=== PATIENT | female | born 1930 | race Caucasian/White ===

== ENCOUNTER 2016-11-03 03:36 | Inpatient (IN) ==
[2016-10-20 12:37] LABS: MANUAL DIFF NEEDED? NO
[2016-10-20 13:10] LABS: INR 1.03; PROTIME 10.8 Seconds (9.2-11.7)
[2016-10-20 13:32] LABS: CALCIUM 9.8 mg/dL (8.8-10.2); POTASSIUM 4.4 mmol/L (3.5-5.1)
[2016-10-20 13:34] LABS: BASO% 0.2 % (0.0-0.8); EOS# 0.26 X1000 (0.0-0.7); EOS% 4.8 % (0.0-10.0); HEMATOCRIT 40.5 % (37.0-47.0); HEMOGLOBIN 13.7 g/dL (12.0-16.0); LYMPH# 1.38 X1000 (1.2-3.4); LYMPH% 25.3 % (20.5-51.1); MCH 32.5 PG (27-31); MCHC 33.8 g/dL (33-37); MCV 96.2 FL (81-99); MONO# 0.56 X1000 (0.11-0.59); MONO% 10.3 % (1.7-9.3); MPV 10.7 FL (7.4-10.4); NEUT% 59.4 % (42.2-75.2); PLT 236 X1000 (130-400); RBC 4.21 XMIL (4.2-5.4)
--- NOTE | 2016-10-20 13:54 | EKG Report ---
Test Performed on : 10/20/2016 12:12:53 PM Test Reason : PAT Blood Pressure : / mmHG Vent. Rate : 070 BPM Atrial Rate : 070 BPM P-R Int : 160 ms QRS Dur : 076 ms QT Int : 410 ms P-R-T Axes : 015 -16 044 degrees QTc Int : 442 ms Normal sinus rhythm. Cannot rule out Anterior infarct , age undetermined Abnormal ECG When compared with ECG of 05-FEB-2016 15:34, No significant change was found Confirmed by Roxanne MANZO, Sam Orozco ([id number]) on 10/22/2016 9:31:43 PM
[2016-11-03] MEDS ORDERED: VANCOMYCIN 1 GM/NS 1 GM/250 ML IVPB ONE (07:23)
[2016-11-03] MEDS ORDERED: COLACE ONE (07:23)
[2016-11-03] MEDS ORDERED: PEPCID ONE (07:24)
[2016-11-03] MEDS ORDERED: LYRICA ONE (07:24)
[2016-11-03] MEDS ORDERED: LR 1,000 ML ONE ×2 (07:24→11:04)
[2016-11-03] MEDS ORDERED: CELEBREX ONE (07:24)
[2016-11-03] MEDS ORDERED: REGLAN ONE (07:24)
[2016-11-03 07:25] LABS: URINE SOURCE CLEAN CATCH
[2016-11-03 07:32] LABS: BILIRUBIN URINE NEGATIVE (NEGATIVE); BLOOD URINE NEGATIVE (NEGATIVE); COLOR YELLOW; GLUCOSE URINE NEGATIVE (NEGATIVE); LEUKOCYTES URINE TRACE (NEGATIVE); NITRITE URINE NEGATIVE (NEGATIVE); PROTEIN URINE TRACE mg/dL (NEGATIVE); SP GRAVITY URINE 1.022; TURBIDITY URINE HAZY (CLEAR); URINE MICRO REVIEW NEEDED? YES; UROBILINOGEN URINE NORMAL (NORMAL)
[2016-11-03] MEDS ORDERED: DIPRIVAN 1% 500 MG/50 ML BOTTLE ONE (07:33)
[2016-11-03 07:48] LABS: UR EPITHELIAL CELLS <10 /HPF (<10); URINE BACTERIA NEGATIVE /HPF; URINE RBC <10 /HPF (<10); URINE WBC <10 /HPF (<10)
[2016-11-03 07:51] LABS: URINE CRYSTALS CA OXALATE PRESENT
[2016-11-03] MEDS ORDERED: SODIUM CHLORIDE 0.9% ONE (08:08)
[2016-11-03] MEDS ORDERED: VANCOMYCIN ONE (08:08)
[2016-11-03] MEDS ORDERED: MARCAINE 0.25% PF/EPI 1:200,000 ONE (08:08)
[2016-11-03] MEDS ORDERED: CYKLOKAPRON 1,000 MG/NS 1,000 MG/100 ML IVPB ONE ×2 (08:08→08:10)
[2016-11-03] MEDS ORDERED: DURAMORPH ONE (08:08)
[2016-11-03] MEDS ORDERED: NEOSPORIN G.U. IRRIGANT ONE (08:09)
[2016-11-03] MEDS ORDERED: EXPAREL 1.3% ONE (08:10)
[2016-11-03] MEDS ORDERED: TORADOL ONE (08:10)
[2016-11-03] MEDS ORDERED: CLAVE SECONDARY SET 11953 ONE ×2 (08:10→08:34)
[2016-11-03] MEDS ORDERED: KEFZOL 1 GM/D5W 1 GM/50 ML IVPB ONE (08:34)
[2016-11-03 09:26] LABS: URINE SOURCE CATH
[2016-11-03 09:35] LABS: BILIRUBIN URINE NEGATIVE (NEGATIVE); BLOOD URINE NEGATIVE (NEGATIVE); COLOR YELLOW; GLUCOSE URINE NEGATIVE (NEGATIVE); LEUKOCYTES URINE NEGATIVE (NEGATIVE); NITRITE URINE NEGATIVE (NEGATIVE); PROTEIN URINE 30 mg/dL (NEGATIVE); SP GRAVITY URINE 1.021; TURBIDITY URINE HAZY (CLEAR); URINE MICRO REVIEW NEEDED? YES; UROBILINOGEN URINE NORMAL (NORMAL)
[2016-11-03 09:47] LABS: UR EPITHELIAL CELLS <10 /HPF (<10); URINE BACTERIA NEGATIVE /HPF; URINE WBC <10 /HPF (<10)
[2016-11-03 09:50] LABS: URINE CASTS GRANULAR PRESENT; URINE CRYSTALS NONE SEEN; URINE SMALL ROUND CELLS NONE SEEN
--- NOTE | 2016-11-03 10:17 | HISTORY AND PHYSICAL ---
CHIEF COMPLAINT: Left knee pain. HISTORY OF PRESENT ILLNESS: Ms. De La Cruz is an 86-year-old, white female who has experienced progressive left knee pain over the years. Her pain is worse with weightbearing activities. Radiographic evaluation of the left knee reveals findings consistent with degenerative joint disease. Despite conservative therapy, she still has a significant reduction in her ability to perform her normal daily activities, and she will be admitted at this time for a left total knee arthroplasty. Primary care provider is Jessenia Franklin MD. ALLERGIES: 1. Penicillin. 2. Codeine. PAST MEDICAL HISTORY: 1. Osteoarthritis. 2. Depression. 3. History of breast cancer. PAST SURGICAL HISTORY: 1. Right total knee arthroplasty. 2. Appendectomy. 3. Hysterectomy. 4. Left lumpectomy. 5. Bilateral cataract surgery. SOCIAL HISTORY: The patient is a remote smoker. She is . CURRENT MEDICATIONS: 1. Myrbetriq 50 mg daily. 2. Fish oil 2 tablets daily. 3. Calcium supplement 1200 mg twice daily. 4. Anastrazole 1 mg by mouth daily. 5. Zoloft 25 daily. 6. Meloxicam 15 daily. REVIEW OF SYSTEMS: HEENT: No known history of stroke or cerebrovascular disease. Denies recent dizzy spells, syncopal events, or interval health changes. Cardiac: The patient has no history of coronary artery disease or valvular heart disease. Denies chest pain, pressure, or other anginal equivalents. Pulmonary: The patient is a remote smoker. She denies any chronic lung disease. Gastrointestinal: No recent nausea, vomiting, diarrhea, or constipation. Genitourinary: Denies kidney or bladder infection or dysfunction. Neurological: She takes an antidepressant. Musculoskeletal: She is here today for management of her left knee osteoarthritis. Other: She has a history of breast cancer. PHYSICAL EXAMINATION: GENERAL: The patient is resting comfortably in bed. She is articulate and able answer all questions completely. HEENT: Head is normocephalic and atraumatic. Pupils are equal, round, react to light. Nares are patent. Throat without exudate. NECK: Supple. HEART: Regular rate and rhythm. No murmurs, gallops, or rubs. LUNGS: Clear to auscultation bilaterally. ABDOMEN: Round. Bowel sounds are present. It is nontender. GENITOURINARY: Not examined. NEUROLOGICAL: Gross motor function is intact. She has sensory perception to soft touch. MUSCULOSKELETAL: Left knee, no deformity, edema, or ecchymosis is noted. She has a good peripheral pulse. IMPRESSION: Degenerative joint disease of the left knee. PLAN: Left total knee arthroplasty. The risks and benefits of surgery were explained to the patient including the risks of anesthesia, , bleeding, infection, damage to tendons, ligaments, nerves, and blood vessels, the possibility of blood clots and other imponderables were discussed, and the patient wishes to proceed with operative management at this time. Dictated by JACQUELINE Mccormick for Jin Quiroga MD cc: JACQUELINE Mccormick MD
[2016-11-03] MEDS ORDERED: FENTANYL ONE (10:47)
[2016-11-03] MEDS ORDERED: VERSED ONE (10:47)
[2016-11-03] MEDS ORDERED: XYLOCAINE-MPF 2% ONE (11:03)
[2016-11-03] MEDS ORDERED: NEO-SYNEPHRINE ONE (11:03)
[2016-11-03] MEDS ORDERED: ZOFRAN ONE (11:03)
[2016-11-03] MEDS ORDERED: OFIRMEV 1000 MG/ISOTONIC SOLN 1,000 MG/100 ML BOTTLE ONE (11:04)
[2016-11-03] MEDS ORDERED: DECADRON ONE (11:04)
[2016-11-03] MEDS ORDERED: NS 1,000 ML ONE (11:33)
--- NOTE | 2016-11-03 11:38 | Diag Imaging Result Document ---
PROCEDURE NAME: KNEE 1-2 VIEWS-LEFT - 11/03/2016 LEFT KNEE, TWO VIEWS: FINDINGS: There has been orthopedic replacement of the left knee. Good alignment to the femoral and tibial components. There are anterior skin debra and there is a superior surgical drain. No acute fracture or dislocation. IMPRESSION: Recently replaced left knee.
[2016-11-03] MEDS ORDERED: MORPHINE IV PRN (12:29)
[2016-11-03] MEDS ORDERED: ZOFRAN PO PRN (12:30)
[2016-11-03] MEDS ORDERED: MILK OF MAGNESIA PO PRN (12:30)
[2016-11-03] MEDS ORDERED: OXY IR PO PRN (12:30)
[2016-11-03] MEDS: NS 1,000 ML IV SCH ×2 (12:45→21:24)
[2016-11-03] MEDS: ZOLOFT PO SCH (12:56)
[2016-11-03] MEDS: MYRBETRIQ E.R. PO SCH (12:56)
[2016-11-03] MEDS: ARIMIDEX PO SCH (12:56)
[2016-11-03] MEDS: MOBIC PO SCH (12:57)
[2016-11-03] MEDS: CALTRATE 600 PO SCH ×2 (12:57→21:22)
--- NOTE | 2016-11-03 13:45 | OPERATIVE NOTE ---
PROCEDURE DATE: 11/03/2016 PREOPERATIVE DIAGNOSIS: Degenerative osteoarthritis of the left knee with valgus alignment. POSTOPERATIVE DIAGNOSIS: Degenerative osteoarthritis of the left knee with valgus alignment. PROCEDURE: Left total knee arthroplasty with a DePuy Sigma size 2.5 femur with a 34 universal femoral stem and a 75 x 14 universal fluted stem, and a size 2.5 tibial tray with a 37 mm metaphyseal sleeve and a 75 x 12 mm universal fluted stem, and 10 mm rotating platform tibial insert, and a 35 mm round dome patella. SURGEON: Jin Quiroga MD CAPTAIN WAITER/WAITRESS: Graciela Smith SECOND ULTRASOUND TECHNOL: Murphy Rich RN ANESTHESIA: Spinal. IV FLUIDS: 1600 mL lactated Ringer's. ESTIMATED BLOOD LOSS: 75 mL. COMPLICATIONS: None. TOURNIQUET: 85 minutes at 350 mmHg. INDICATIONS: Patient is an 86-year-old female who has chronic history of worsening pain and discomfort over the left knee. Patient had x-rays that revealed significant degenerative arthritis with valgus deformity. Recommendation to proceed with left total knee arthroplasty was offered. Risks and benefits of surgery were explained, including the risks of anesthesia, , bleeding, infection, failure to relieve pain, postop stiffness, nerve injury, blood clots, and other imponderables. All questions answered, patient and family wished to proceed with surgery. DESCRIPTION OF PROCEDURE: The patient was taken to the operating room, placed supine on the operating table. Once adequate anesthesia was obtained, patient's left lower extremity was subsequently prepped and draped in usual sterile fashion. A standard Esmarch was used to exsanguinate the left lower extremity and tourniquet was inflated to 350 mmHg. A standard anterior incision was made with a skin knife. Medial and lateral skin envelopes were developed. Standard medial parapatellar arthrotomy was then performed. Patella fat pad was excised. Attention then turned to the proximal tibia where resection of the proximal tibia was performed. After this had been performed, an intramedullary reamer was then conducted up to size 12. After this had been performed, the superior aspect of the proximal tibia was over-reamed. This was followed by sequential broaching with a metaphyseal broach. The size 37 appeared to be correct size. This was countersunk. After this had been performed, resection performed once again of the proximal tibia. After this had been performed, this was then removed. A size 2.5 tibial tray with a 37 metaphyseal sleeve and a 75 x 12 trial stem was then placed in position, had good fit and good purchase. Attention then turned to the distal femur where intramedullary reamer was then conducted up to a size 14. The distal femoral cut was then performed. A spacer block was then placed in position with the femoral cutting block with the knee held in 90 degrees of flexion. The pins were then placed. Anterior, posterior, and chamfer cuts were then made. A box cutting guide was then performed. After this had been performed, the trial broach was removed. The size 2.5 femur with a 34 mm femoral sleeve and a 75 x 14 trial stem was then impacted in position and had good fit. Trial tibial insert was then placed and had good soft tissue balancing. Attention turned to the patella, the patella was everted and resected in standard fashion. A 35 appeared to be correct size. Corresponding holes were drilled. The trial patella component was then placed and had good patellofemoral tracking. The trial components were removed. Copious irrigation was then performed with antibiotic pulsatile lavage while the cement was being prepared on the back table. The tibial and femoral constructs were then assembled on the back table. After this had been performed, the cement was placed on the superior aspect of the proximal tibia. This followed by the size 2.5 tray with the 37 metaphyseal sleeve and a 75 x 12 mm stem impacted. Excess cement was removed with a [place]. The cement was then placed on the distal femur and the size 2.5 femur with 34 femoral sleeve and a 75 x 14 universal fluted stem was then impacted in position. Excess cement was removed. Trial tibial insert was then placed and full extension and axial loading was maintained while cement hardened. The patella cemented in the standard fashion. Patella clamp was placed. Exparel was placed in deep soft tissue, as well as subcutaneous tissue. After cement hardened, the 10 mm rotating platform tibial insert was determined to be the correct size. The trial tibial insert was removed. Exparel was placed in the posterior capsule. Copious irrigation was then performed once again with antibiotic pulsatile lavage. This was followed by a 10 mm rotating platform tibial insert. A one-eighth Hemovac drain was placed and was not sewn in. Copious irrigation then performed once again with antibiotic pulsatile lavage. Number 1 Vicryl was used to repair the arthrotomy, followed by 2-0 Vicryl repair of the subcutaneous tissue and skin debra. Adaptic, sterile 4 x 4, Webril, cryo unit, David wrap applied to the left lower extremity. Patient tolerated the procedure well with no complications, was transferred to the recovery room in stable condition. cc: Jin Quiroga MD
[2016-11-03] MEDS: TYLENOL PO SCH ×2 (16:52→23:55)
[2016-11-03] MEDS: KEFZOL 1 GM/D5W 1 GM/50 ML IVPB IV SCH ×2 (16:52→23:55)
[2016-11-03] MEDS: COLACE PO SCH (21:22)
[2016-11-03] MEDS: PERIDEX MT SCH (21:22)
[2016-11-04] MEDS: NS 1,000 ML IV SCH (04:27)
[2016-11-04] MEDS: TYLENOL PO SCH ×4 (05:09→22:26)
[2016-11-04 05:45] LABS: HEMATOCRIT 31.1 % (37.0-47.0); HEMOGLOBIN 10.3 g/dL (12.0-16.0)
[2016-11-04 05:55] LABS: CALCIUM 9.6 mg/dL (8.8-10.2); POTASSIUM 4.5 mmol/L (3.5-5.1)
[2016-11-04] MEDS ORDERED: XARELTO PO ONE (08:00)
--- NOTE | 2016-11-04 08:40 | PROGRESS NOTE ---
DATE: 11/04/2016 SUBJECTIVE: The patient is a pleasant 86-year-old female, who is 1 day status post left total knee arthroplasty. Patient is currently resting comfortably and has no significant complaints. PHYSICAL EXAMINATION: Left lower extremity, her dressing is intact. Her calf is soft. She has active dorsiflexion and plantar flexion. Her hemoglobin is 10.3, hematocrit is 31.1. IMPRESSION: Postoperative day #1, status post left total knee arthroplasty. PLAN: At this point, discussed treatment options with the patient. At this time it was felt the patient would benefit from inpatient rehabilitation. We will consult Physical Therapy for discharge planning. We will also discontinue her drain, change her dressing, as well as Hep-Lock her IV. cc: Jin Quiroga MD
[2016-11-04] MEDS ORDERED: DECADRON IV ONE (09:00)
[2016-11-04] MEDS: ZOLOFT PO SCH (09:04)
[2016-11-04] MEDS: CALTRATE 600 PO SCH ×2 (09:04→20:17)
[2016-11-04] MEDS: COLACE PO SCH ×2 (09:04→20:17)
[2016-11-04] MEDS: MOBIC PO SCH (09:04)
[2016-11-04] MEDS: PEPCID PO SCH (09:04)
[2016-11-04] MEDS: MYRBETRIQ E.R. PO SCH (09:04)
[2016-11-04] MEDS: ARIMIDEX PO SCH (09:05)
[2016-11-04] MEDS: PERIDEX MT SCH ×2 (14:40→20:17)
[2016-11-05] MEDS: TYLENOL PO SCH ×4 (05:05→21:03)
[2016-11-05] MEDS: XARELTO PO SCH (05:05)
[2016-11-05 05:54] LABS: HEMATOCRIT 29.8 % (37.0-47.0); HEMOGLOBIN 9.9 g/dL (12.0-16.0)
[2016-11-05] MEDS ORDERED: OXY IR PO PRN (07:15)
[2016-11-05] MEDS: MYRBETRIQ E.R. PO SCH (09:38)
[2016-11-05] MEDS: CALTRATE 600 PO SCH ×2 (09:38→21:03)
[2016-11-05] MEDS: PEPCID PO SCH (09:39)
[2016-11-05] MEDS: PERIDEX MT SCH ×2 (09:39→21:03)
[2016-11-05] MEDS: MOBIC PO SCH (09:39)
[2016-11-05] MEDS: ZOLOFT PO SCH (09:39)
[2016-11-05] MEDS: COLACE PO SCH ×2 (09:39→21:03)
[2016-11-05] MEDS: ARIMIDEX PO SCH (09:39)
--- NOTE | 2016-11-05 10:43 | PROGRESS NOTE ---
DATE: 11/05/2016 SUBJECTIVE: The patient is a pleasant 86-year-old female who is 2 days status post total knee arthroplasty. The patient did sustain a fall last evening and reported she was somewhat confused last night and thought she was at home got up and slipped and fell to the ground. There was no reported loss of consciousness. She did, however,bump her head. She has had no significant crease discomfort of the leg and seems to be doing well this morning. OBJECTIVE: Patient is awake, alert, and cooperative with exam. She does have a small area of hematoma along the right side of her forehead. Left lower extremity: Her wound looks good. There is no signs symptoms of infection. Her calf is soft. She has active dorsiflexion and plantar flexion. LABORATORY DATA: Her hemoglobin is 9.9 and hematocrit is 29.8. IMPRESSIONS: 1. Postop day # 2 status post left total knee arthroplasty. 2. Acute blood loss anemia, asymptomatic. PLAN: At this point, the patient will continue progressing with physical therapy. We will Trust Vault Clerk has been consulted for discharge planning for inpatient rehabilitation. We will plan on discharge to rehab tomorrow if a bed is available. cc: Jin Quiroga MD
--- NOTE | 2016-11-05 14:37 | DISCHARGE SUMMARY ---
ADMISSION DATE: 11/03/2016 DISCHARGE DATE: 11/06/2016 ADMITTING DIAGNOSIS: Degenerative osteoarthritis, left knee. DISCHARGE DIAGNOSES: 1. Degenerative osteoarthritis, left knee, status post left total knee arthroplasty. 2. Acute blood loss anemia. BRIEF HISTORY: The patient was an 86-year-old female, who presents with a chronic history of worsening pain and discomfort of the left lower knee. Her pain has progressed to affect her activities of daily living. The patient's x-rays revealed significant degenerative arthritis with valgus deformity. Recommendation to proceed with left total knee arthroplasty was offered. Risks and benefits discussed and all questions were answered. Patient wished to proceed with surgery. HOSPITAL COURSE AND TREATMENT: Patient was admitted into the hospital and underwent left total knee arthroplasty. She tolerated the procedure well. Patient did sustain a fall during the night between postop days #1 and 2; however had no significant pain following the fall. By postop day #2, her hemoglobin was 9.9, hematocrit is 29.8. The patient was progressing with physical therapy. It was felt that she would benefit from inpatient rehabilitation. The patient was agreeable to this. Prior to discharge, the patient is afebrile, tolerating regular diet. Wound looked good. There are no signs or symptoms of infection. DISCHARGE MEDICATIONS: 1. OxyIR 5 mg 1 p.o. q. 4 hours p.r.n. pain. 2. Xarelto 10 mg p.o. daily x14 days. 3. For remaining medications, please see medication list. DISCHARGE INSTRUCTIONS: 1. The patient will be discharged for inpatient rehabilitation. 2. Consult physical therapy with full weightbearing left lower extremity and range of motion and gait training per total knee protocol. 3. Discontinue debra in 11 days. 4. Follow up in the office in 3 to 4 weeks. cc: Jin Quiroga MD
--- NOTE | 2016-11-05 16:22 | Diag Imaging Result Document ---
PROCEDURE NAME: CHEST-PORTABLE - 11/05/2016 PORTABLE CHEST: COMPARISON: 02/07/2012. FINDINGS: The lungs are well expanded. The heart is not enlarged. The vessels are not distended. No pneumonia. No pleural effusions identified. The patient has scoliosis. IMPRESSION: Negative chest.
[2016-11-06] MEDS: TYLENOL PO SCH ×2 (00:15→05:37)
[2016-11-06] MEDS: XARELTO PO SCH (05:37)
[2016-11-06 05:48] LABS: HEMATOCRIT 31.5 % (37.0-47.0); HEMOGLOBIN 10.4 g/dL (12.0-16.0)
[2016-11-06 07:25] VITALS: BP 165/80
[2016-11-06] MEDS: MOBIC PO SCH (08:04)
[2016-11-06] MEDS: PEPCID PO SCH (08:04)
[2016-11-06] MEDS: CALTRATE 600 PO SCH (08:05)
[2016-11-06] MEDS: ZOLOFT PO SCH (08:05)
[2016-11-06] MEDS: COLACE PO SCH (08:05)
[2016-11-06] MEDS: PERIDEX MT SCH (08:05)
[2016-11-06] MEDS: MYRBETRIQ E.R. PO SCH (08:29)
[2016-11-06] MEDS: ARIMIDEX PO SCH (08:29)
== END 2016-11-06 11:15 ==
LOC: SURHOLD 03:36 → 4N 10:09
PROVIDERS: ADMIT Orthopaedic Surgery Adult Reconstructive Orthopaedic Surgery; ATTEND Orthopaedic Surgery Adult Reconstructive Orthopaedic Surgery

== ENCOUNTER 2017-03-23 01:39 | Inpatient (IN) ==
[2017-03-21 10:12] LABS: MANUAL DIFF NEEDED? NO
[2017-03-21 10:16] LABS: BASO% 0.4 % (0.0-0.8); EOS# 0.11 X1000 (0.0-0.7); EOS% 2.1 % (0.0-10.0); HEMATOCRIT 40.3 % (37.0-47.0); HEMOGLOBIN 13.6 g/dL (12.0-16.0); LYMPH# 1.34 X1000 (1.2-3.4); LYMPH% 25.7 % (20.5-51.1); MCH 31.9 PG (27-31); MCHC 33.7 g/dL (33-37); MCV 94.4 FL (81-99); MONO# 0.46 X1000 (0.11-0.59); MONO% 8.8 % (1.7-9.3); MPV 10.4 FL (7.4-10.4); PLT 189 X1000 (130-400); RBC 4.27 XMIL (4.2-5.4)
[2017-03-21 10:48] LABS: INR 1.03; PROTIME 10.8 Seconds (9.2-11.7)
[2017-03-21 10:53] LABS: POTASSIUM 4.1 mmol/L (3.5-5.1)
[2017-03-21] MEDS: TYLENOL PO SCH (12:30)
[2017-03-23] MEDS ORDERED: DURAMORPH ONE (06:19)
[2017-03-23] MEDS ORDERED: CYKLOKAPRON 1,000 MG/NS 1,000 MG/100 ML IVPB ONE (06:20)
[2017-03-23] MEDS ORDERED: TORADOL ONE (06:20)
[2017-03-23] MEDS ORDERED: SODIUM CHLORIDE 0.9% ONE (06:20)
[2017-03-23] MEDS ORDERED: VANCOMYCIN ONE (06:20)
[2017-03-23] MEDS ORDERED: SENSORCAINE 0.5%-EPI 1:200,000 ONE (06:20)
[2017-03-23] MEDS ORDERED: NEOSPORIN G.U. IRRIGANT ONE (06:21)
[2017-03-23] MEDS ORDERED: EXPAREL 1.3% ONE (06:21)
[2017-03-23] MEDS ORDERED: REGLAN ONE (06:45)
[2017-03-23] MEDS ORDERED: PEPCID ONE (06:45)
[2017-03-23] MEDS ORDERED: LYRICA ONE (06:45)
[2017-03-23] MEDS ORDERED: CELEBREX ONE (06:45)
[2017-03-23] MEDS ORDERED: COLACE ONE (06:45)
[2017-03-23] MEDS ORDERED: LR 1,000 ML ONE (06:46)
[2017-03-23] MEDS ORDERED: CLINDAMYCIN 600 MG/NS 600 MG/50 ML IVPB ONE (06:46)
[2017-03-23] MEDS ORDERED: DIPRIVAN 1% ONE (06:52)
[2017-03-23] MEDS ORDERED: FENTANYL ONE (06:54)
[2017-03-23] MEDS ORDERED: NORCURON ONE (06:56)
[2017-03-23] MEDS ORDERED: STERILE WATER INJ. ONE (06:57)
[2017-03-23] MEDS ORDERED: QUELICIN (DOSE) ONE (06:57)
[2017-03-23] MEDS ORDERED: MARCAINE 0.25% PF ONE (07:45)
[2017-03-23 09:30] LABS: URINE MICRO REVIEW NEEDED? NO; URINE SOURCE CATH
[2017-03-23 09:35] LABS: BILIRUBIN URINE NEGATIVE (NEGATIVE); BLOOD URINE NEGATIVE (NEGATIVE); COLOR YELLOW; GLUCOSE URINE NEGATIVE (NEGATIVE); LEUKOCYTES URINE TRACE (NEGATIVE); NITRITE URINE NEGATIVE (NEGATIVE); PH URINE 5.5; PROTEIN URINE NEGATIVE (NEGATIVE); SP GRAVITY URINE 1.018; TURBIDITY URINE CLEAR (CLEAR); UROBILINOGEN URINE NORMAL (NORMAL)
[2017-03-23 09:36] LABS: UR EPITHELIAL CELLS <10 /HPF (<10); URINE BACTERIA NEGATIVE /HPF; URINE RBC <10 /HPF (<10); URINE WBC <10 /HPF (<10)
[2017-03-23] MEDS ORDERED: DECADRON ONE (10:08)
[2017-03-23] MEDS ORDERED: ZOFRAN ONE (10:08)
[2017-03-23] MEDS ORDERED: OFIRMEV 1000 MG/ISOTONIC SOLN 1,000 MG/100 ML BOTTLE ONE (10:13)
[2017-03-23] MEDS ORDERED: ROBINUL ONE (10:15)
[2017-03-23] MEDS ORDERED: NEOSTIGMINE ONE (10:16)
[2017-03-23] MEDS ORDERED: MILK OF MAGNESIA PO PRN (11:15)
[2017-03-23] MEDS ORDERED: ZOFRAN PO PRN (11:15)
[2017-03-23] MEDS ORDERED: OXY IR PO PRN (11:15)
[2017-03-23] MEDS ORDERED: ZOFRAN IV PRN (11:15)
[2017-03-23] MEDS ORDERED: MORPHINE IV PRN (11:16)
[2017-03-23] MEDS ORDERED: MORPHINE ONE (11:17)
[2017-03-23] MEDS ORDERED: NS 1,000 ML ONE (11:28)
[2017-03-23] MEDS: NS 1,000 ML IV SCH (12:00)
[2017-03-23] MEDS ORDERED: CYKLOKAPRON 1,000 MG in NS 100 ML IV ONE (15:00)
[2017-03-23] MEDS: TYLENOL PO SCH (16:16)
[2017-03-23] MEDS: CLINDAMYCIN 600 MG/NS 600 MG/50 ML IVPB IV SCH (18:28)
[2017-03-23] MEDS ORDERED: CLINDAMYCIN 600 MG/NS 600 MG/50 ML IVPB IV SCH (21:00)
[2017-03-23] MEDS: PERIDEX MT SCH (21:02)
[2017-03-23] MEDS: COLACE PO SCH (21:02)
[2017-03-24] MEDS: NS 1,000 ML IV SCH ×3 (01:00→23:12)
[2017-03-24] MEDS: TYLENOL PO SCH ×5 (01:08→23:13)
[2017-03-24] MEDS: CLINDAMYCIN 600 MG/NS 600 MG/50 ML IVPB IV SCH ×2 (01:08→03:03)
[2017-03-24 06:11] LABS: HEMATOCRIT 29.1 % (37.0-47.0); HEMOGLOBIN 9.5 g/dL (12.0-16.0)
[2017-03-24 06:31] LABS: CALCIUM 8.7 mg/dL (8.8-10.2); POTASSIUM 4.8 mmol/L (3.5-5.1)
[2017-03-24] MEDS ORDERED: OXY IR PO PRN (06:46)
[2017-03-24] MEDS: PEPCID PO SCH (10:16)
[2017-03-24] MEDS: MYRBETRIQ E.R. PO SCH (10:18)
[2017-03-24] MEDS: MOBIC PO SCH (10:18)
[2017-03-24] MEDS: COLACE PO SCH ×2 (10:19→20:00)
[2017-03-24] MEDS: ARIMIDEX PO SCH (10:19)
[2017-03-24] MEDS: ZOLOFT PO SCH (10:19)
[2017-03-24] MEDS: PERIDEX MT SCH ×2 (10:20→20:00)
[2017-03-25] MEDS: TYLENOL PO SCH ×4 (04:43→22:41)
[2017-03-25 06:12] LABS: HEMATOCRIT 28.4 % (37.0-47.0); HEMOGLOBIN 9.2 g/dL (12.0-16.0)
[2017-03-25] MEDS: PEPCID PO SCH (10:24)
[2017-03-25] MEDS: ARIMIDEX PO SCH ×2 (10:24→10:26)
[2017-03-25] MEDS: ZOLOFT PO SCH ×2 (10:24→10:26)
[2017-03-25] MEDS: MYRBETRIQ E.R. PO SCH ×2 (10:25→10:27)
[2017-03-25] MEDS: MOBIC PO SCH ×2 (10:25→10:26)
[2017-03-25] MEDS: COLACE PO SCH ×2 (10:25→21:19)
[2017-03-25] MEDS: PERIDEX MT SCH ×2 (10:26→21:19)
[2017-03-26] MEDS: NS 1,000 ML IV SCH (03:28)
[2017-03-26] MEDS: TYLENOL PO SCH (04:16)
[2017-03-26 06:16] LABS: HEMATOCRIT 32.7 % (37.0-47.0); HEMOGLOBIN 10.7 g/dL (12.0-16.0)
[2017-03-26 08:20] VITALS: BP 154/82
== END 2017-03-26 09:46 ==
LOC: SURHOLD 01:39 → 4N 08:58
PROVIDERS: ADMIT Orthopaedic Surgery Adult Reconstructive Orthopaedic Surgery; ATTEND Orthopaedic Surgery Adult Reconstructive Orthopaedic Surgery